=== PATIENT | female | born 1975 | race African-American/Black ===

== ENCOUNTER 2018-05-31 08:25 | Outpatient (CLI) | payer OTHER ==
--- NOTE | 2018-05-31 09:55 | MMO ---
MAMMO Bilat Diag [facility]. CLINICAL HISTORY: Patient is 42 years old and is seen for diagnostic exam. The patient has no family history of breast cancer. The patient has no personal history of cancer. The patient has a history of Implants in 2016. VIEWS: The views performed were: bilateral craniocaudal with tomosynthesis; bilateral mediolateral oblique with tomosynthesis; bilateral mediolateral; bilateral Implant displaced with tomosynthesis; and right exaggerated craniocaudal. FILMS COMPARED: The present examination has been compared to prior imaging studies performed at [facility] on 05/31/2018, and at [facility] on 05/12/2015. MAMMOGRAM FINDINGS: The breasts are heterogeneously dense, which could obscure a lesion on mammography. There is an oval mass with circumscribed margins seen in the right breast at 10 o'clock. IMPRESSION: MASS IN THE RIGHT BREAST IS PROBABLY BENIGN. FOLLOW-UP IN 6 MONTHS IS RECOMMENDED. THE RESULTS OF THIS EXAM WERE SENT TO THE PATIENT. ACR BI-RADS Category 3 - Probably benign finding - short interval follow-up suggested. [facility] will notify the patient of the need for additional imaging services. MAMMOGRAPHY NOTE: 1. A negative mammogram report should not delay a biopsy if a dominant of clinically suspicious mass is present. 2. Approximately 10% to 15% of breast cancers are not detected by mammography. 3. Adenosis and dense breasts may obscure an underlying neoplasm.
--- NOTE | 2018-05-31 10:40 | ULT ---
RIGHT BREAST ULTRASOUND: Date: 05/31/18 HISTORY: Palpable mass in the 10 o'clock position of the right breast for approximately 6 months. The patient does not do self-breast exams and happened to stumble across this mass and is uncertain if it was pre sent prior to first feeling it 6 months ago. The patient states that this mass has not changed in siz e in 6 months. Patient had a breast augmentation in 2016. TECHNIQUE: Multiplanar Avery scale and color Doppler images were obtained in a targeted ultrasound of the right b reast. FINDINGS: At the 10 o'clock position of the right breast, there is a well-circumscribed, hypoechoic mass measur ing 1.7 x 0.7 x 1.2 cm in size. This demonstrates increased through-transmission. This is immediately adjacent to the patient's implant. No suspicious shadowing is seen. IMPRESSION: The mass in the right breast most likely represents a fibroadenoma. BIRADS Category 3 - Probably cathryn gn findings. A 6 month follow-up mammogram and ultrasound are recommended to ensure stability. The facility will notify patient of need for additional imaging services. POS: [facility]
== END 2018-05-31 08:26 | disposition home or self-care (01) ==
LOC: BICMAMMO 08:25
PROVIDERS: ATTEND Student in an Organized Health Care Education/Training Program
DX: N63.10 Unspecified lump in the right breast, unspecified quadrant (principal)
CPT/HCPCS: 77066; G0279